=== PATIENT | male | born 1960 | race Caucasian/White ===

== ENCOUNTER 2017-08-30 01:04 | Emergency (ER) | payer SELFPAY ==
[~2017-08-30] VITALS: Ht 172.7 cm; Wt 113.4 kg
[2017-08-30 01:25] VITALS: BP_SYST 178
[2017-08-30] MEDS ORDERED: ASPIRIN 325 MG TABLET PO ONE (01:30)
[2017-08-30] MEDS ORDERED: ATEN50TA PO (01:32)
[2017-08-30] MEDS ORDERED: LISI-600 PO (01:32)
[2017-08-30] MEDS ORDERED: cloNIDine HCL 0.1 MG TABLET PO ONE ×2 (01:45→03:00)
[2017-08-30] MEDS ORDERED: NACL 0.9% 1,000 ML IV ONE (01:45)
[2017-08-30 02:00] LABS: BASOPHILS # (AUTO) 0.1 K/uL (0.0-0.2); BASOPHILS % (AUTO) 0.8 % (0.0-2.0); EOSINOPHILS # (AUTO) 0.2 K/uL (0.0-0.4); EOSINOPHILS % (AUTO) 2.1 % (0.0-4.0); HEMATOCRIT 46.6 % (36-54); HEMOGLOBIN 15.3 g/dL (14.0-18.0); LYMPHOCYTES # (AUTO) 2.5 K/uL (1.0-5.5); LYMPHOCYTES % (AUTO) 28.4 % (20.5-51.5); MEAN CORPUSCULAR HEMOGLOBIN 32 pg (27-31); MEAN CORPUSCULAR HGB CONC 33 % (32-36); MEAN CORPUSCULAR VOLUME 97 fL (79.0-98.0); MONOCYTES # (AUTO) 0.6 K/uL (0.0-1.0); MONOCYTES % (AUTO) 7.5 % (1.7-9.3); NEUTROPHILS # (AUTO) 5.3 K/uL (1.8-7.7); NEUTROPHILS % (AUTO) 61.2 % (40.0-70.0); PLATELET COUNT (AUTO) 229 K/uL (130-430); RED CELL DISTRIBUTION WIDTH 12.4 % (9.0-15.0); WHITE BLOOD COUNT (AUTO) 8.7 K/uL (4.8-10.8)
[2017-08-30 02:02] LABS: CREATININE 0.77 mg/dL (0.55-1.30)
[2017-08-30 02:06] LABS: POTASSIUM 2.9 mmol/L (3.5-5.1)
[2017-08-30 02:07] LABS: ALBUMIN 3.6 g/dL (3.4-4.8); TOTAL BILIRUBIN 0.9 mg/dL (0.0-1.0)
[2017-08-30] MEDS ORDERED: POTASSIUM CHLORIDE 20 MEQ TAB.PRT.SR PO ONE (02:15)
[2017-08-30 03:48] VITALS: BP_SYST 155
== END 2017-08-30 03:48 | disposition home or self-care (01) ==
LOC: SED 01:04
DX: I10 Essential (primary) hypertension (principal)
CPT/HCPCS: 36415; 80053; 85025; 96360; 99284; J7030